=== PATIENT | female | born 1965 | race Caucasian/White ===

== ENCOUNTER → 2017-11-12 | Outpatient (CLI) | payer OTHER | END | disposition home or self-care (01) | LOC: KCIC MAMMO 17:38 | DX: Z12.31 Encounter for screening mammogram for malignant neoplasm of breast (principal) | CPT/HCPCS: 77067 ==

== ENCOUNTER → 2018-11-18 | Outpatient (CLI) | payer OTHER ==
[2016-07-29 10:12] VITALS: BP 121/69
[~2018-11-18] MED LIST: ASPI325T11 PO; CIPR250T30 PO; DILT180C29 PO; LACT1CAP12 PO; VENL75CA PO
--- NOTE | 2018-11-19 09:33 | KCIC ---
Bilateral digital screening mammograms: Reason for examination: Routine screening. Comparison is made to previous studies dated 11/12/2017 and 09/10/2014. Interpretation was made with the benefit of CAD. The skin and nipples show no abnormalities. No abnormal axillary lymph nodes are seen. The breast parenchyma is heterogeneously dense. (Breast density: Category C.) There are no dominant masses, suspicious calcifications or architectural distortion. Impression: No evidence of malignancy. Recommend routine screening. Your patient's mammogram demonstrates that she has dense breast tissue (breast density category C or D), which could hide abnormalities, and if she has other risk factors for breast cancer that have been identified, she might benefit from supplemental screening tests that may be suggested by you as her ordering physician. Dense breast tissue, in and of itself, is a relatively common condition. Therefore, this information is not provided to cause undue concern, but rather to raise your awareness and to promote discussion with your patient regarding the presence of other risk factors, in addition to dense breast tissue. Your patient's mammography results will be sent to her. BI-RAD Category 1: Negative. "Our facility is accredited by the [employer] Mammography Program." This patient's information has been entered into a reminder system for the patient to be notified with the results of her examination and a target date for the next mammogram. Electronically signed by: Radha Pineda MD (11/19/2018 9:29 AM) [facility]
== END | disposition home or self-care (01) ==
LOC: KCIC MAMMO 16:53
PROVIDERS: ATTEND Nurse Practitioner Family
DX: Z12.31 Encounter for screening mammogram for malignant neoplasm of breast (principal)
CPT/HCPCS: 77067

== ENCOUNTER → 2020-09-02 | Outpatient (CLI) | payer OTHER ==
[2016-07-29 10:12] VITALS: BP 121/69
--- NOTE | 2020-09-02 18:35 | KCIC ---
BILATERAL SCREENING MAMMOGRAM History: Routine screening. Comparison: Bilateral mammogram November 18, 2018. Technique: Routine bilateral digital mammogram views were obtained. Findings: Breast Tissue Density C : The breasts are heterogeneously dense, which may obscure small masses. There are no dominant masses, suspicious microcalcifications, or architectural distortion. IMPRESSION: No mammographic evidence of malignancy. Recommend routine screening. BI-RADS category 1: Negative. The images were reviewed with computer aided detection. Patient information is entered into the reminder system with a target due date for the next screening mammogram. Mammography is the most sensitive method for finding small breast cancers, but it does not detect the m all and is not a substitute for careful clinical examination. A negative mammogram does not negate a clinically suspicious finding and should not result in delay in biopsying a clinically suspicious a bnormality. "Our facility is accredited by the [employer] Mammography Program." Electronically signed by: Arnaldo Gregory MD (09/02/2020 6:33 PM) [id number]
== END ==
LOC: KCIC MAMMO 07:49
PROVIDERS: ATTEND Nurse Practitioner Family
DX: Z12.31 Encounter for screening mammogram for malignant neoplasm of breast (principal)
CPT/HCPCS: 77067

== ENCOUNTER 2021-08-22 09:14 | Day surgery (SDC) | payer OTHER ==
[~2021-08-22] VITALS: Ht 165.1 cm; Wt 96.8 kg
[~2021-08-22 09:14] MED LIST changes: -ACETAMINOPHEN 325 MG TABLET. PO ONE; -BUPIVACAINE MPF 0.25% 30 ML VIAL. ONE; -GABAPENTIN 100 MG CAPSULE. PO ONE; -GABAPENTIN 300 MG CAPSULE. PO ONE; +HYDROmorphone 2 MG/ML VIAL IVP PRN; +IV RINGERS,LACTATED 1000ML 1,000 ML IV SCH; +MORPHINE SULFATE 2 MG/ML INJ. IVP PRN; +PROCHLORPERAZINE 10 MG/2 ML VIAL. IVP PRN; -SCOPOLAMINE 1.5MG PATCH. TD ONE; +fentaNYL PF VIAL 100 MCG/2 ML VIAL IVP PRN; -oxyCODONE/APAP 5/325 1 TAB TABLET PO ONE
[2021-08-22] MEDS ORDERED: SEVOFLURANE 31 TO 60 MINUTES. IH ONE (09:59)
[2021-08-22] MEDS ORDERED: PROPOFOL 10 MG/ML (20ML) VIAL. IV ONE (10:01)
[2021-08-22] MEDS ORDERED: fentaNYL PF VIAL 100 MCG/2 ML VIAL ONE ×2 (10:01→13:51)
[2021-08-22 10:05] VITALS: BP 142/77
[2021-08-22] MEDS ORDERED: ONDANSETRON PF 4 MG/2 ML VIAL. ONE ×2 (10:05→14:35)
[2021-08-22] MEDS ORDERED: LIDOCAINE 2% PF 5 ML VIAL. ONE (10:05)
[2021-08-22] MEDS ORDERED: KETOROLAC 30 MG/ML VIAL. ONE (10:05)
[2021-08-22] MEDS ORDERED: DEXAMETHASONE SOD PHOS 20 MG/5 ML VIAL. ONE (10:11)
[2021-08-22] MEDS ORDERED: FAMOTIDINE 20 MG/2 ML VIAL ONE (10:11)
[2021-08-22] MEDS ORDERED: ACETAMINOPHEN 325 MG TABLET. PO ONE (10:15)
[2021-08-22] MEDS ORDERED: GABAPENTIN 300 MG CAPSULE. PO ONE (10:15)
[2021-08-22] MEDS ORDERED: SCOPOLAMINE 1.5MG PATCH. TD ONE (10:15)
[2021-08-22] MEDS ORDERED: BUPIVACAINE MPF 0.25% 30 ML VIAL. IJ ONE (11:41)
--- NOTE | 2021-08-22 11:48 | PDOC4 ---
OPERATIVE NOTE Date: Date: Aug 22, 2021 Pre-Op Diagnosis: Chronic carpal tunnel syndrome left Post-Op Diagnosis: Same Procedure Performed: Carpal tunnel release left Surgeon: Zoila Anesthesia Type: General Blood Loss: 5 cc Specimans Obtained: None Findings: See dictation Complications: None ODILIA DURAN Jr., DO Aug 22, 2021 11:48
--- NOTE | 2021-08-22 11:50 | DISCH ---
DISCHARGE INSTRUCTIONS Condition on Discharge Condition on Discharge: Stable Activity After Discharge Activity Instructions for Disc: Activity as tolerated, Avoid exertion Lifting Instructions after Dis: Do not lift >10 pounds Driving Instructions after Dis: Do not drive today Weight Bearing Status after Di: No restrictions Diet after Discharge Diet after Discharge: Regular Diet Texture: Regular Liquid Texture: Thin Liquid Swallowing Supervision: None needed Wound Incision Care Other wound/incision instructi: May change dressings postoperative day #3 Checks after Discharge Checks after discharge: Check blood press - daily Follow-Up Follow up with: 10 to 14 days Treatment/Equipment after DC Adaptive Equipment Issued: None ODILIA DRUAN Jr. DO Aug 22, 2021 11:50
--- NOTE | 2021-08-22 12:10 | OP ---
DATE OF SURGERY: 08/22/2021 PREOPERATIVE DIAGNOSIS: Carpal tunnel syndrome, chronic, left. POSTOPERATIVE DIAGNOSIS: Carpal tunnel syndrome, chronic, left. PROCEDURE: Carpal tunnel release, left. SURGEON: Librado Cummings Jr, DO CAFETERIA ASSOCIATE: Rene Ballesteros. ANESTHESIA: General. COMPLICATIONS: None. ESTIMATED BLOOD LOSS: 5 mL DESCRIPTION OF PROCEDURE: The patient was taken to the operative suite, given a general anesthetic. Left upper extremity was then prepped and draped in a sterile fashion. Incision was made directly over the area of the transverse carpal ligament in line with the radial border of the fourth digit. This was carefully taken down through the palmar fascia to identify the transverse ligament. This was noted to be begun to release with a 15 blade and following this, this was fully released longitudinally. The underlying nerve was noted to be completely intact and fully released at this point. It looked very good with no other areas of constriction. Therefore, the wound was then thoroughly irrigated and then reapproximated in an interrupted fashion. Sterile dressing was then applied. The patient was then taken from the operative bed to the postoperative bed, taken to PACU in stable condition. ASHLEE DR: Calixto TID: [id number]
[2021-08-22] MEDS ORDERED: BUPIVACAINE MPF 0.25% 30 ML VIAL. INJ ONE (12:18)
[2021-08-22] MEDS ORDERED: TRIAMCINOLONE ACETONIDE 40 MG/ML VIAL. IM ONE (13:00)
[2021-08-22] MEDS ORDERED: SEVOFLURANE 61 TO 120 MINUTES. IH ONE (13:04)
[2021-08-22] MEDS ORDERED: ONDANSETRON PF 4 MG/2 ML VIAL. IVP ONE (15:00)
[2021-08-22 15:30] VITALS: BP 148/76
--- NOTE | 2021-08-24 14:07 | PATHOLOGY ---
[facility] Accession Number: [id number] . 01 Material submitted: . toe - LEFT 2ND TOE SOFT TISSUE MASS. Modifiers: left, second . 01 Clinical history: . LEFT FOOT CHEILECTOMY . 02 Diagnosis: Segment of skin, left second toe soft tissue mass: - Myxoid lesion consistent with digital mucous cyst. See comment. (JPM:pit; 08/24/2021) LBQ 08/24/2021 0928 Local . 02 Comment: Microscopic sections reveal a hypocellular lesion within the dermis containing stellate to spindle shaped cells in an abundant myxoid matrix. The findings are consistent with digital mucous cyst (cutaneous myxoid cyst). The epidermis shows pseudoepitheliomatous hyperplasia. . (JPM:pit; 08/24/2021) . 02 Electronically signed: . Josh Martinez MD, Pathologist NPI- [id number] . 01 Gross description: . The specimen is received in formalin, labeled "Gunjan Navarrete, left 2nd toe soft tissue mass" and consists of a lozada-white soft irregular tissue (0.5 x 0.4 x 0.2 cm) which is submitted in toto in A1.([facility]; 08/22/2021) DKA/DKA 08/22/2021 1817 Local . 02 Pathologist provided ICD-10: R22.42 . 02 CPT . 237458 Specimen Comment: A courtesy copy of this report has been sent to [phone], [phone] Specimen Comment: [id number] Specimen Comment: Report sent to / DR MOLINA Performed at: 01 [facility] [address] [place] [address] [address], [place], [place] [id number] MD Meng Vicente MD Phone: [phone] Performed at: [address] [id number] MD Josh Martinez MD Phone: [phone]
== END 2021-08-22 15:56 | disposition home or self-care (01) ==
LOC: SURG 09:14
PROVIDERS: ATTEND Orthopaedic Surgery
DX: G56.02 Carpal tunnel syndrome, left upper limb (principal); K21.9 Gastro-esophageal reflux disease without esophagitis; F41.9 Anxiety disorder, unspecified; Z90.49 Acquired absence of other specified parts of digestive tract; Z90.710 Acquired absence of both cervix and uterus; Z98.890 Other specified postprocedural states; Z72.89 Other problems related to lifestyle; Z79.899 Other long term (current) drug therapy
CPT/HCPCS: 64721; A4213; A4930; A6402; A6449; J0690; J1100; J1885; J2405; J2704; J3010; J3301; J3490; A4657; A6452; A6454

== ENCOUNTER → 2021-08-22 | Outpatient (CLI) | payer OTHER ==
[2016-07-29 10:12] VITALS: BP 121/69
[~2021-08-22] MED LIST changes: +ACETAMINOPHEN 325 MG TABLET. PO ONE; +BUPIVACAINE MPF 0.25% 30 ML VIAL. ONE; +GABAPENTIN 100 MG CAPSULE. PO ONE; +GABAPENTIN 300 MG CAPSULE. PO ONE; +SCOPOLAMINE 1.5MG PATCH. TD ONE; +oxyCODONE/APAP 5/325 1 TAB TABLET PO ONE
--- NOTE | 2021-08-22 11:59 | RAD ---
Three-view left foot HISTORY: Pain AP lateral oblique weightbearing views left foot were obtained There is marked degenerative changes the first metacarpal phalangeal joint with loss of joint space a nd marginal spurring and eburnation. The remaining visualized osseous structures appear normal. 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 No acute findings. Electronically signed by: River Conroy III, MD (08/22/2021 11:57 AM) TRINH
--- NOTE | 2021-08-22 13:27 | PDOC4 ---
OPERATIVE NOTE Date: Date: Aug 22, 2021 Pre-Op Diagnosis: Left hallux limitus, arthritis across the first MTPJ, second lateral DIPJ ganglion cyst Post-Op Diagnosis: Same as above Procedure Performed: Left cheilectomy, exostectomy at the base of the hallux, lateral fibular sesamoid release, medial capsularaphy Left second digit ganglion cyst removal, intra-articular steroid injection to the DIPJ Surgeon: Edgar Kaba DPM Anesthesia Type: General Blood Loss: 5 cc Specimans Obtained: Left lateral second DIPJ soft tissue mass Findings: Left first MTPJ: Significant joint space narrowing with para-articular osteophyte both medially and laterally. Loose joint mice to the dorsal aspect of the MTPJ. 40 to 50% cartilage erosion to the dorsal aspect of the first metatarsal head without any cystic changes. Left second DIPJ: Soft tissue mass derived from the lateral second DIPJ with encapsulated viscous fluid. Complications: None Operative Note: Under mild sedation, patient was brought into the operating room and placed on the operating table in the supine position. A formal timeout was performed to confirm patient's identity, procedure and procedure site. Preoperative antibiotics and general anesthesia were induced, a well-padded left high ankle tourniquet was placed. After the left carpal tunnel procedure was performed by Dr. Cummings, the left lower extremity was then prepped, scrubbed, draped using standard aseptic techniques. The left lower extremity was exsanguinated with pressure inflated at 250 millimercury. The attention was directed to the dorsal medial aspect of the first MTPJ where a full-thickness linear incision was made. The incision was carried deep with a combination of sharp and blunt dissection with care to protect and retract all the neurovascular bundles. After the MTPJ capsule was visualized, a linear capsulotomy was performed to expose the underlying osseous structures. The joint capsule was carefully elevated off the first metatarsal head and the base of the proximal hallux to aid in further osseous resection and evaluation. At this time, moderate para-articular osteophytes were noted at the dorsal medial and lateral aspect of the first MTPJ along with joint mice dorsally as well. There was at least 40% cartilage erosion to the first metatarsal head dorsally without any cystic changes. At this time, a sagittal saw was used to resect out the medial eminence at the first metatarsal head with care to preserve the plantar medial groove to avoid hallux varus. Then dorsal 30% of the metatarsal head was resected with a sagittal saw to decompress the first MTPJ. Rongeur was used to remove the joint mice and also remodel the base of the proximal hallux. Passive first MTPJ range of motion remarked at least 45 degrees dorsiflexion. Therefore, no additional osseous resection was indicated or executed. With simulated weightbearing, the hallux was noted deviating towards the second toe likely from the unaddressed first MTPJ alignment and also hallux interphalangeal angle. At this time, the decision was made to release to fibular sesamoid laterally. using a blunt dissection at the distal first intermetatarsal space, the lateral sesamoid metatarsal head capsule/complex was exposed and visualized. The sesamoid suspensory ligament was released around the fibular sesamoid. The adductor hallucis tendon was released from the fibular sesamoid to improve hallux alignment and DASA. At this time, passive first MTPJ range of motion and forefoot loading remarked improved hallux alignment with less overlap against the second. Therefore at the lateral MTPJ capsule was left intact. A McGlamry elevator was used to release the tibial and fibular sesamoid plantarly from the metatarsal head to aid in MTPJ range of motion and sesamoid gliding during dorsiflexion. The surgical site was irrigated with copious saline solution. The redundant medial capsule was excised and capsulorrhaphy was performed with a 3-0 Vicryl while the first MTPJ was loaded plantarly and hallux was positioned rectus and parallel to the second digit. The skin was closed in layers with 4-0 Monocryl 4-0 nylon. The attention was directed to the lateral aspect of the second DIPJ where two full-thickness, semielliptical skin incisions were made encompassing the H PK. The incision was carried deep to the periosteum layer with care to protect and retract all the neurovascular bundles. At this time, we encountered a well encapsulated soft tissue mass stemmed from the lateral DIPJ without violation to the extensor tendons. The soft tissue mass was carefully resected out and passed down to the back table for pathology specimen. The capsule was carefully incised and noted viscous fluid. The second digit vision was irrigated with copious saline solution. 0.3cc of 40 mg of Kenalog was infiltrated into the second DIPJ. The incision was closed with 4-0 nylon. 10 cc of 0.25% Marcaine plain was infiltrated into the distal first ray and second digit for postoperative anesthesia augmentation. Both surgical sites were dressed with Xeroform, 4 4 gauze, Kerlix and Coban, AMELIA with the hallux splinted in a rectus position across the MTPJ and parallel position to the second digit. Tourniquet was deflated and adequate digital perfusion was noted. Patient tolerated the procedure and anesthesia well with vital signs stable neurovascular status intact. Patient was transferred to PACU for continuous recovery. Pending left foot x-ray 3 view. EDGAR KABA DPM Aug 22, 2021 13:27
--- NOTE | 2021-08-22 16:18 | RAD ---
EXAMINATION: XR FOOT_LEFT 3 VIEWS CLINICAL HISTORY: Postoperative evaluation TECHNIQUE: XR FOOT_LEFT 3 VIEWS COMPARISON: 08/22/2021 9:42 AM FINDINGS/ IMPRESSION: Interval bunionectomy with expected postsurgical changes in the surrounding soft tissues including mi ld subcutaneous emphysema. No acute fracture. Remainder of the study otherwise unchanged. Electronically signed by: Kvng Higuera DO (08/22/2021 4:15 PM) [id number]
== END ==
LOC: RAD 09:25
PROVIDERS: ATTEND Podiatrist
DX: M19.072 Primary osteoarthritis, left ankle and foot (principal); M76.892 Other specified enthesopathies of left lower limb, excluding foot; Z98.890 Other specified postprocedural states
CPT/HCPCS: 73630; J3490